=== PATIENT | female | born 1950 | race Caucasian/White ===

== ENCOUNTER → 2016-09-20 | Day surgery (SDC) | payer MEDICARE, BC ==
[~2016-09-20] MED LIST: ALLEGRA ALLERG180 MG PO; ALLER-FLO15.8 ML; ATIVAN PO; AUGMENTIN PO; CYCLOBENZAPRINE5 MG PO; FLOVENT HFA10.6 G1 INH; LEXAPRO5 MG PO; PANTOPRAZOLE SO40 MG PO; PREMARIN0.3 MG PO; SINGULAIR PO; SYMBICORT INH; VESICARE PO; ZETONNA6.1 GM; ZYPREXA2.5 MG PO
--- NOTE | ~2016-09-20 | OR ---
Unit #: [id number] #: [id number] Patient: LIANNA NAYAK [id number] [address] [place], [place] [address] [id number] MR#: [id number] NAME: LIANNA NAYAK ROOM: Date of Procedure: 09/20/2016 Admission Date: 09/20/2016 Surgeon: Teo Ferro M.D. : 1950 Attending Physician: Kin Ferro Primary Care Physician: Yessy Mccormack M.D. [facility] OPERATIVE NOTE PROCEDURE PERFORMED Cervical epidural steroid injection under x-ray guided needle placement with provider administered conscious sedation. PREOPERATIVE DIAGNOSES 1. Acute cervical radiculitis. 2. Spinal stenosis, cervical spine. 3. Herniated disk, C6-C7. 4. Degenerative joint disease, cervical spine. 5. Degenerative disk disease, cervical spine. INDICATIONS FOR PROCEDURE The patient presents today with longstanding history of chronic lumbar radicular pain secondary to her underlying degenerative processes. She is generally fairly well managed medically with ongoing continuous conservative measures. However, she has experienced exacerbations in the past, which have broken through her ongoing continuous therapy and have only responded to epidural steroid injections. Her usual pattern of relief with epidural steroid injection was approximately 100% for 4 to 6 weeks, which decreases to approximately 60% at 8 weeks and then her pain will begin to return in a crescendo pattern necessitating intervention. She is currently experiencing just such an exacerbation and presents today requesting an epidural steroid injection. After discussing risks and benefits of proceeding today with an epidural steroid injection as well as being informed by the patient that she is pending surgical consultation, a plan which I agree, the patient felt this would be appropriate course of action and she was then taken to the operating room. DESCRIPTION OF PROCEDURE She was prepped with sterile technique and received 2 mL of IV Versed for sedation. Following a sterile prep and drape sedation, the patient was accessed at the C6-C7 level using loss of resistance technique and x-ray guidance. Needle placement was confirmed with injection of 2 mL of Omnipaque. There was good superior and inferior flow at the C6-C7 needle placement. Following successful needle placement confirmation, the patient received an injectate containing 4 mL normal saline and 80 mg of methylprednisolone. She tolerated this procedure well. She was discharged home with followup instructions, which include an offer to return to this clinic as early as 12/27/2016 if we could be of further service to her. Dictated by... Unit #: [id number] #: [id number] Patient: LIANNA NAYAK Teo Ferro M.D. JRG/stephenie TD: 09/21/2016 02:45 JOB #: [id number] CC: Francisco Solis M.D. [facility] OPERATIVE NOTE Page 1 of 1 X Kin Ferro MD X PROCEDURE OPERATIVE NOTE
== END | disposition home or self-care (01) ==
LOC: CCSC 09:18
DX: G89.29 Other chronic pain (principal); M50.123 Cervical disc disorder at C6-C7 level with radiculopathy; M48.02 Spinal stenosis, cervical region
CPT/HCPCS: J1040; J2250

== ENCOUNTER → 2017-01-03 | Day surgery (SDC) | payer MEDICARE, BC ==
--- NOTE | ~2017-01-03 | OR ---
Unit #: [id number] #: [id number] Patient: LIANNA NAYAK [id number] [address] [place], [place] [address] [id number] MR#: [id number] NAME: LIANNA NAYAK ROOM: Date of Procedure: 01/03/2017 Admission Date: 01/03/2017 Surgeon: Teo Ferro M.D. : 1950 Attending Physician: Kin Ferro Primary Care Physician: Yessy Mccormack M.D. [facility]ENTER OPERATIVE NOTE PROCEDURE PERFORMED Cervical epidural steroid injection under x-ray guided needle placement with provider administered conscious sedation. PREOPERATIVE DIAGNOSES 1. Acute cervical radiculitis. 2. Spinal stenosis, cervical spine. 3. Herniated disk, C6-C7, cervical spine. 4. Degenerative joint disease, cervical spine. 5. Degenerative disk disease, cervical spine. INDICATIONS FOR PROCEDURE The patient presents today with a longstanding history of chronic cervical radicular pain secondary to underlying degenerative processes. She is generally fairly well managed medically, but does occasionally experience exacerbations, which to date have only responded to epidural steroid injections. Her usual amount relief is approximately 60% for six weeks. At today's visit, she does complain of an exacerbation which is consistent with her past exacerbations as well as some symptoms compatible with a cervical facet arthralgia. These symptoms are consistent with her x-ray studies and with past visits. After discussing risks and benefits of proceeding today with a C6-C7 cervical approach epidural steroid injection as well as a referral to [facility] for potential facet joint injections/radiofrequency ablation of the C5 through C7 facet joints, the patient agreed this would be the appropriate course of action. DESCRIPTION OF PROCEDURE She was then taken to the operating room, where she was prepped and draped in a sterile manner. Standard monitors were applied. She was sedated with 2 mg of IV Versed and cervical epidural space accessed at the C6-C7 level using loss of resistance technique and x-ray guidance. Needle placement was confirmed with injection of 2 mL of Omnipaque, and there was good superior and inferior flow at the C6-C7 placement. Following successful needle placement confirmation which required an x-ray time of 5 seconds, the patient received an injection containing 4 mL of normal saline and 80 mg of methylprednisolone. She tolerated this procedure well. She was discharged home with following instructions which include referral to [facility] as described above as well as an offer to return to this clinic as early as 04/11 if we could be of further service to her. Dictated by... Teo Ferro M.D. Unit #: [id number] #: [id number] Patient: LIANNA NAYAK G/modl TD: 01/03/2017 16:17 JOB #: [id number] CC: Francisco Solis M.D. [facility]ENTER OPERATIVE NOTE Page 1 of 1 X Kin Ferro MD X PROCEDURE OPERATIVE NOTE
== END | disposition home or self-care (01) ==
LOC: CCSC 12-27 15:45
DX: G89.29 Other chronic pain (principal); M50.123 Cervical disc disorder at C6-C7 level with radiculopathy; M48.02 Spinal stenosis, cervical region; M47.22 Other spondylosis with radiculopathy, cervical region; K21.9 Gastro-esophageal reflux disease without esophagitis; Z88.1 Allergy status to other antibiotic agents; Z88.8 Allergy status to other drugs, medicaments and biological substances; Z90.710 Acquired absence of both cervix and uterus; Z90.49 Acquired absence of other specified parts of digestive tract; Z79.899 Other long term (current) drug therapy
CPT/HCPCS: J1040; J2250